=== PATIENT | female | born 1960 ===

== ENCOUNTER → 2024-12-10 11:58 | Outpatient (REF) | payer OTHER, SELFPAY | LOC: CLAB 11:58 | PROVIDERS: ATTENDING PHYSICIAN Otolaryngology | DX: J32.9 Chronic sinusitis, unspecified (principal) | CPT/HCPCS: 87070; 87205 ==

== ENCOUNTER 2024-12-12 16:51 | Emergency (ER) | payer OTHER, SELFPAY ==
[2024-12-12 16:57] VITALS: BP 134/86
--- NOTE | 2024-12-12 19:40 | ED.GENMED ---
History of Present Illness
General
Chief Complaint: Skin Problem
Source: patient
Exam Limitations: none
Time Seen by Provider: 12/12/24 18:50
Nursing documentation reviewed up to this point in time: agreed with
History of Present Illness
History of Present Illness:
64-year-old female presenting to the emergency department today with concerns of ongoing swelling of the past 2 months after foot surgery. She called her surgeon they recommend getting ultrasound to ensure there is no blood clot. Denies any chest
pain shortness of breath. Denies any fevers denies significant redness or warmth
Review of Systems
Review of Systems
Allergies reviewed?: Yes
All Other Systems: ROS reviewed and negative except as documented in HPI and ROS
Phy Exam
Physical Exam
Physical Exam:
GENERAL: Alert , in no apparent distress
EYE: pupils equal and reactive
NECK: Supple, no significant adenopathy.
ENT: o/p clr, mmm.
CARDIAC: Regular rate and rhythm .
LUNGS: Clear breath sounds bilaterally, no acute respiratory distress, no wheezes/rales/rhonchi
ABDOMEN: Soft, without focal tenderness, no r/g, no cvat
NEUROLOGICAL: Alert and oriented, no focal neuro deficits
SKIN: Warm and dry, skin intact.
MUSCULOSKELETAL: No edema, well perfused.
PSYCH: Normal and appropriate interaction.
Course
Orders/Labs/Results
Orders:
Orders
12/12/24 17:01
US Periph Venous LOWER Ext LT Urgent
Comment:
Reason For Exam: swelling/redness post op
Vital Signs
Initial and Last Documented VS:
Initial Vital Signs
Temp Pulse Resp BP Pulse Ox
98.2 F 100 18 134/86 95
12/12/24 16:57 12/12/24 16:57 12/12/24 16:57 12/12/24 16:57 12/12/24 16:57
Last Documented Vital Signs
Temp Pulse Resp BP Pulse Ox
98.2 F 100 18 134/86 95
12/12/24 16:57 12/12/24 16:57 12/12/24 16:57 12/12/24 16:57 12/12/24 16:57
MDM/Problems Addressed
MDM/Problems Addressed:
64-year-old female presenting to the emergency department ongoing swelling to left lower extremity after having foot surgery 2 months ago. Here and ultrasound was performed without signs of DVT. No significant redness or warmth no systemic
symptoms does not appear to be consistent with infection. Does have a follow-up in 2 days. Return precautions given.
*Critical Care Note
Total Time (30-74mins, 75-104mins- exclusive of procedures): Not Applicable
ED Attending Note
-
Portions of this chart may have been created with voice recognition software.� Occasional wrong word or��sound alike� substitutions may have occurred due to the inherent limitations of voice recognition software.
Discharge Plan
Departure
Patient Disposition: Home (Routine Discharge)
Date of Disposition: 12/12/24
Time of Disposition: 19:43
Patient with high blood pressure during this ER visit?: No
Condition: Good
Covid-19: Not Applicable
Discharge Problem:
Leg swelling
Referrals:
UNKNOWN - PT DOES,NOT KNOW [Family Provider] -
Activity Restrictions/Additional Instructions:
You came to the emergency department today with concerns of leg swelling. Here you had an ultrasound without signs of DVT. Please keep the leg elevated and use compression stocking follow-up closely with your foot doctor in 2 days. Return for any
worsening, new or concerning symptoms.
Interventions
Interventions:
*Risk Screen - Suicide Last Done: 12/12/24 17:00
*General Assessment Last Done: 12/12/24 17:00
*Neglect/Abuse Screening Last Done: 12/12/24 17:00
*ED COVID-19 Vaccine History Last Done: 12/12/24 17:00
Discharge Date and Time
Print Language: YORUBA
== END 2024-12-12 20:07 | disposition home or self-care (01) ==
LOC: EMR 16:51
PROVIDERS: EMERGENCY PHYSICIAN Emergency Medicine
DX: R22.42 Localized swelling, mass and lump, left lower limb (principal)
CPT/HCPCS: 99284; 93971